=== PATIENT | male | born 1965 | race Caucasian/White ===

== ENCOUNTER 2016-09-01 14:39 | Emergency (ER) | payer OTHER ==
[~2016-09-01] VITALS: Ht 185.4 cm; Wt 102.1 kg
[2016-09-01 14:40] VITALS: BP_SYST 131
[2016-09-01] MEDS ORDERED: SODIUM BICARBONATE 8.4% VIAL 50 MEQ/50 ML VIAL INJ ONE (15:30)
[2016-09-01] MEDS ORDERED: CEFAZOLIN 1 GM IVPB PREMIX 50 ML IV ONE (15:30)
[2016-09-01] MEDS ORDERED: IBUPROFEN 800 MG TABLET PO ONE (15:30)
[2016-09-01] MEDS ORDERED: LIDOCAINE/EPI 2% 1:100000 20 ML VIAL IJ ONE (15:30)
[2016-09-01] MEDS ORDERED: LIDOCAINE 1% 10 MG/ML, 20 ML MDV IJ ONE (15:30)
[2016-09-01] MEDS ORDERED: NACL 0.9% 1,000 ML IV ONE (15:30)
[2016-09-01] MEDS ORDERED: LIDOCAINE/PRILOCAINE 5 GM CREAM (EMLA) TP ONE (15:45)
[2016-09-01 16:59] VITALS: BP_SYST 131
== END 2016-09-01 16:59 | disposition home or self-care (01) ==
LOC: SED 14:39
DX: L05.01 Pilonidal cyst with abscess (principal); Z90.49 Acquired absence of other specified parts of digestive tract
CPT/HCPCS: 10060; 96365; 99284; J0690

== ENCOUNTER 2016-09-03 17:34 | Emergency (ER) | payer OTHER ==
[~2016-09-03] VITALS: Ht 185.4 cm; Wt 102.1 kg
[2016-09-03 17:39] VITALS: BP_SYST 118
--- NOTE | 2016-09-03 17:44 | NUR ---
Pt to bed 4
--- NOTE | 2016-09-03 17:44 | NUR ---
Pt to sam. Pt report received from ELIZABETH Grande. Pt here for wound packing check. Pt s/p I&D to a cyst in Left Gluteus x 2 days ago. Purulent stains noted to dsg. Awaiting for Dr. Meyer to assess pt prior to bandage removal.
--- NOTE | 2016-09-03 18:00 | NUR ---
Dr. Meyer at bedside to assess pt. Dsg to Left buttocks removed and wound appears endurated and erythemic. Packing removed, wound cleansed with Iodine and NS, Iodoform packing replaced per Dr. Meyer. New gauze dsg applied. Pt tolerated well.
[2016-09-03 18:40] VITALS: BP_SYST 122
--- NOTE | 2016-09-03 18:40 | NUR ---
Note rozinalamar in EDM - 09/03/16 at [address] Meyer at bedside to assess pt. Dsg to Left buttocks removed and wound appears endurated and erythemic. Packing removed, wound cleansed with Iodine and NS, Iodoform packing replaced per Dr. Meyer. New gauze dsg applied. Pt tolerated well.
--- NOTE | 2016-09-03 18:40 | NUR ---
Patient given written and verbal discharge instructions and verbalizes understanding. ER MD discussed with patient the results and treatment provided. Patient in stable condition. ID arm band removed. Patient educated on pain management and to follow up with PMD. Pain Scale 4/10, tolerable. Opportunity for questions provided and answered.
== END 2016-09-03 18:40 | disposition home or self-care (01) ==
LOC: SED 17:34
DX: Z48.01 Encounter for change or removal of surgical wound dressing (principal); L05.01 Pilonidal cyst with abscess
CPT/HCPCS: 99283

== ENCOUNTER 2016-09-06 14:37 | Emergency (ER) | payer OTHER ==
[~2016-09-06] VITALS: Ht 185.4 cm; Wt 102.1 kg
[2016-09-06 14:43] VITALS: BP 134/80; PULSE 68; RESP 20; TEMP 98.1; O2SAT 100
--- NOTE | 2016-09-06 14:55 | NUR ---
Patient to ER bed 7 to gown for evaluation. Side rails up.
--- NOTE | 2016-09-06 15:03 | NUR ---
Patient to ER for wound repacking. Patient states that he has been dealing with the abscess for the past 3 years and is not getting any better. Patient had the abscess I&N a few days ago and now he is here for repacking. Sacral/upper buttocks open wound aprox 2 cm, depth 1 cm with tunneling. Mild oozing of pus, no bleeding. AAOx4, unlabored breathing, no signs of acute distress.
--- NOTE | 2016-09-06 15:04 | NUR ---
ER MIKA Martinez at bedside for evaluation
[2016-09-06] MEDS ORDERED: LIDOCAINE/EPI 2% 1:100000 20 ML VIAL INJ ONE (15:30)
--- NOTE | 2016-09-06 15:45 | NUR ---
Wound repacking procedure done by ER PROJECT EXECUTIVE Michelle mclean using sterile technique. Lidocaine 2% used. Wound packed with iodofor. Adaptic, 4x4 and rosemarie to wound. Zero amt of bleeding noted. Wound care discussed w/ patient. Pt tolerated procedure well.
[2016-09-06] MEDS ORDERED: IBUPROFEN 800 MG TABLET PO ONE (16:00)
[2016-09-06 16:31] VITALS: BP 127/73; PULSE 71; RESP 18; TEMP 98.1; O2SAT 98
--- NOTE | 2016-09-06 16:31 | NUR ---
Patient given written and verbal discharge instructions and verbalizes understanding. ER POWER LINEWORKER Michelle discussed with patient the results and treatment provided. Patient in stable condition. ID arm band removed. Rx of motrin & norco given. Patient educated on pain management and to follow up with PMD. Pain Scale 0/10. Opportunity for questions provided and answered.
== END 2016-09-06 16:31 | disposition home or self-care (01) ==
LOC: SED 14:37
DX: Z48.01 Encounter for change or removal of surgical wound dressing (principal)
CPT/HCPCS: 99283

== ENCOUNTER 2016-09-08 17:08 | Emergency (ER) | payer OTHER ==
[~2016-09-08] VITALS: Ht 185.4 cm; Wt 102.1 kg
[2016-09-08 17:16] VITALS: BP_SYST 112
[2016-09-08 18:10] VITALS: BP_SYST 117
== END 2016-09-08 18:10 | disposition home or self-care (01) ==
LOC: SED 17:08
DX: Z48.00 Encounter for change or removal of nonsurgical wound dressing (principal)
CPT/HCPCS: 99283

== ENCOUNTER 2016-09-23 14:10 | Emergency (ER) | payer OTHER ==
[~2016-09-23] VITALS: Ht 185.4 cm; Wt 102.1 kg
[2016-09-23 14:27] VITALS: BP_SYST 145
[2016-09-23 14:53] LABS: EOSINOPHILS % (AUTO) 0.2 % (0.0-4.0); MEAN CORPUSCULAR HEMOGLOBIN 29 pg (27-31); MEAN CORPUSCULAR HGB CONC 33 % (32-36); MEAN CORPUSCULAR VOLUME 87 fL (79.0-98.0)
[2016-09-23 15:04] LABS: CALCIUM 9.1 mg/dL (8.4-11.0); CREATININE 1.49 mg/dL (0.55-1.30); POTASSIUM 4.1 mmol/L (3.5-5.1)
[2016-09-23 15:05] LABS: BASOPHILS # (AUTO) 0.2 K/uL (0.0-0.2); BASOPHILS % (AUTO) 2.1 % (0.0-2.0); HEMATOCRIT 43.4 % (36-54); HEMOGLOBIN 14.2 g/dL (14.0-18.0); LYMPHOCYTES % (AUTO) 10.9 % (20.5-51.5); MONOCYTES # (AUTO) 0.4 K/uL (0.0-1.0); MONOCYTES % (AUTO) 4.7 % (1.7-9.3); NEUTROPHILS # (AUTO) 7.5 K/uL (1.8-7.7); NEUTROPHILS % (AUTO) 82.1 % (40.0-70.0); PLATELET COUNT (AUTO) 202 K/uL (130-430); RED BLOOD CELL COUNT(AUTO) 4.99 MIL/uL (4.2-6.2); RED CELL DISTRIBUTION WIDTH 12.8 % (9.0-15.0); WHITE BLOOD COUNT (AUTO) 9.1 K/uL (4.8-10.8)
[2016-09-23 15:08] LABS: ALBUMIN 4.4 g/dL (3.4-4.8); TOTAL BILIRUBIN 0.7 mg/dL (0.0-1.0); TOTAL PROTEIN, SERUM 7.7 g/dL (6.4-8.3)
[2016-09-23 15:23] LABS: BILIRUBIN,URINE NEGATIVE (NEGATIVE); BLOOD, URINE 2+ (NEGATIVE); CLARITY/URINE CLEAR (CLEAR); COLOR,URINE YELLOW (YELLOW); GLUCOSE,URINE NEGATIVE (NEGATIVE); KETONES,URINE 1+ (NEGATIVE); LEUKOCYTE ESTERASE ,URINE NEGATIVE (NEGATIVE); NITRITE, URINE NEGATIVE (NEGATIVE); PH,URINE 5.5 (5.0-8.0); PROTEIN URINE NEGATIVE (NEGATIVE); UROBILINOGEN,URINE 0.2 (0.2-1.0)
[2016-09-23 15:33] LABS: BACTERIA,URINE None Seen /HPF (None Seen); WBC,URINE 0-3 /HPF (0-3)
[2016-09-23 15:34] LABS: CALCIUM OXALATE CRYSTALS,UR 0-10 /HPF (None Seen)
[2016-09-23] MEDS ORDERED: KETOROLAC TROMETHAMINE 60 MG/2 ML VIAL IM ONE (17:15)
[2016-09-23] MEDS ORDERED: MORPHINE 4 MG/ML INJ. SYRINGE IM ONE (18:00)
[2016-09-23] MEDS ORDERED: ONDANSETRON 4 MG ODT TAB PO ONE (18:00)
[2016-09-23 18:40] VITALS: BP_SYST 125
== END 2016-09-23 18:40 | disposition home or self-care (01) ==
LOC: SED 14:12
DX: N23 Unspecified renal colic (principal)
CPT/HCPCS: 36415; 74176; 80053; 81000; 83690; 85025; 96372; 99285; J1885; J2270; Q0162

== ENCOUNTER 2018-03-02 16:42 | Emergency (ER) | payer BC, OTHER ==
[~2018-03-02] VITALS: Ht 185.4 cm; Wt 104.3 kg
[2018-03-02 16:50] VITALS: BP_SYST 115
[2018-03-02] MEDS ORDERED: PROCHLORPERAZINE EDISYLATE 10 MG/2 ML VIAL IM ONE (17:30)
[2018-03-02] MEDS ORDERED: KETOROLAC TROMETHAMINE 60 MG/2 ML VIAL IM ONE (17:30)
[2018-03-02 17:46] LABS: BASOPHILS % (AUTO) 0.7 % (0.0-2.0); EOSINOPHILS % (AUTO) 0.6 % (0.0-4.0); HEMATOCRIT 42.6 % (36-54); HEMOGLOBIN 13.8 g/dL (14.0-18.0); LYMPHOCYTES # (AUTO) 1.4 K/uL (1.0-5.5); LYMPHOCYTES % (AUTO) 25.9 % (20.5-51.5); MEAN CORPUSCULAR HEMOGLOBIN 29 pg (27-31); MEAN CORPUSCULAR HGB CONC 32 % (32-36); MEAN CORPUSCULAR VOLUME 90 fL (79.0-98.0); MONOCYTES # (AUTO) 0.3 K/uL (0.0-1.0); MONOCYTES % (AUTO) 5.5 % (1.7-9.3); NEUTROPHILS # (AUTO) 3.6 K/uL (1.8-7.7); NEUTROPHILS % (AUTO) 67.3 % (40.0-70.0); PLATELET COUNT (AUTO) 199 K/uL (130-430); RED BLOOD CELL COUNT(AUTO) 4.74 MIL/uL (4.2-6.2); RED CELL DISTRIBUTION WIDTH 12.8 % (9.0-15.0); WHITE BLOOD COUNT (AUTO) 5.3 K/uL (4.8-10.8)
[2018-03-02 17:55] LABS: CALCIUM 9.1 mg/dL (8.4-11.0); CREATININE 0.96 mg/dL (0.55-1.30); POTASSIUM 4.5 mmol/L (3.5-5.1)
[2018-03-02 18:00] LABS: ALBUMIN 3.9 g/dL (3.4-4.8); TOTAL BILIRUBIN 0.6 mg/dL (0.0-1.0)
[2018-03-02 19:09] VITALS: BP_SYST 115
== END 2018-03-02 19:13 | disposition home or self-care (01) ==
LOC: SED 16:42
DX: M43.6 Torticollis (principal); F17.200 Nicotine dependence, unspecified, uncomplicated; R03.0 Elevated blood-pressure reading, without diagnosis of hypertension
CPT/HCPCS: 36415; 71045; 80053; 82550; 84484; 85025; 93005; 96372; 99285; J0780; J1885

== ENCOUNTER 2018-11-14 09:21 | Emergency (ER) | payer BC ==
[~2018-11-14] VITALS: Ht 185.4 cm; Wt 102.1 kg
[2018-11-14 09:40] VITALS: BP_SYST 132
[2018-11-14] MEDS ORDERED: NACL 0.9% 1,000 ML IV ONE (09:54)
[2018-11-14] MEDS ORDERED: ONDANSETRON HCL 4 MG/2 ML VIAL IVP ONE (10:00)
[2018-11-14] MEDS ORDERED: KETOROLAC TROMETHAMINE 30 MG VIAL IVP ONE (10:00)
[2018-11-14 10:22] LABS: BASOPHILS % (AUTO) 0.5 % (0.0-2.0); EOSINOPHILS # (AUTO) 0.1 K/uL (0.0-0.4); EOSINOPHILS % (AUTO) 2.6 % (0.0-4.0); HEMOGLOBIN 14.5 g/dL (14.0-18.0); LYMPHOCYTES # (AUTO) 1.9 K/uL (1.0-5.5); LYMPHOCYTES % (AUTO) 43.3 % (20.5-51.5); MEAN CORPUSCULAR HEMOGLOBIN 30 pg (27-31); MEAN CORPUSCULAR HGB CONC 34 % (32-36); MEAN CORPUSCULAR VOLUME 88 fL (79.0-98.0); MONOCYTES # (AUTO) 0.4 K/uL (0.0-1.0); MONOCYTES % (AUTO) 8.8 % (1.7-9.3); NEUTROPHILS # (AUTO) 1.9 K/uL (1.8-7.7); NEUTROPHILS % (AUTO) 44.8 % (40.0-70.0); PLATELET COUNT (AUTO) 191 K/uL (130-430); RED BLOOD CELL COUNT(AUTO) 4.88 MIL/uL (4.2-6.2); RED CELL DISTRIBUTION WIDTH 13.7 % (9.0-15.0); WHITE BLOOD COUNT (AUTO) 4.3 K/uL (4.8-10.8)
[2018-11-14 10:35] LABS: CALCIUM 8.9 mg/dL (8.4-11.0); CREATININE 0.85 mg/dL (0.55-1.30); POTASSIUM 4.1 mmol/L (3.5-5.1)
[2018-11-14 10:40] LABS: ALBUMIN 3.8 g/dL (3.4-4.8); TOTAL BILIRUBIN 0.6 mg/dL (0.0-1.0)
[2018-11-14 11:12] LABS: BILIRUBIN,URINE NEGATIVE (NEGATIVE); CLARITY/URINE CLEAR (CLEAR); COLOR,URINE YELLOW (YELLOW); GLUCOSE,URINE NEGATIVE (NEGATIVE); KETONES,URINE NEGATIVE (NEGATIVE); LEUKOCYTE ESTERASE ,URINE NEGATIVE (NEGATIVE); NITRITE, URINE NEGATIVE (NEGATIVE); PROTEIN URINE NEGATIVE (NEGATIVE); UROBILINOGEN,URINE 0.2 (0.2-1.0)
[2018-11-14 11:28] LABS: BLOOD, URINE TRACE (NEGATIVE)
[2018-11-14 11:33] VITALS: BP_SYST 129
[2018-11-14 12:14] LABS: BACTERIA,URINE None Seen /HPF (None Seen); WBC,URINE NONE SEEN /HPF (0-3)
== END 2018-11-14 11:32 | disposition home or self-care (01) ==
LOC: SED 09:21
DX: K59.00 Constipation, unspecified (principal)
CPT/HCPCS: 36415; 74176; 80053; 81000; 85025; 96374; 96375; 99284; J1885; J2405; J7030

== ENCOUNTER 2019-02-16 04:02 | Emergency (ER) | payer BC ==
[~2019-02-16] VITALS: Ht 185.4 cm; Wt 102.1 kg
[2019-02-16 04:05] VITALS: BP_SYST 126
[2019-02-16] MEDS ORDERED: NACL 0.9% 1,000 ML IV ONE (04:23)
[2019-02-16] MEDS ORDERED: KETOROLAC TROMETHAMINE 30 MG VIAL IVP ONE (04:30)
[2019-02-16 04:44] LABS: BASOPHILS % (AUTO) 0.6 % (0.0-2.0); EOSINOPHILS # (AUTO) 0.2 K/uL (0.0-0.4); EOSINOPHILS % (AUTO) 3.2 % (0.0-4.0); HEMATOCRIT 43.3 % (36-54); HEMOGLOBIN 14.6 g/dL (14.0-18.0); LYMPHOCYTES # (AUTO) 2.2 K/uL (1.0-5.5); LYMPHOCYTES % (AUTO) 42.9 % (20.5-51.5); MEAN CORPUSCULAR HEMOGLOBIN 30 pg (27-31); MEAN CORPUSCULAR HGB CONC 34 % (32-36); MEAN CORPUSCULAR VOLUME 91 fL (79.0-98.0); MONOCYTES # (AUTO) 0.5 K/uL (0.0-1.0); MONOCYTES % (AUTO) 9.3 % (1.7-9.3); NEUTROPHILS # (AUTO) 2.2 K/uL (1.8-7.7); PLATELET COUNT (AUTO) 204 K/uL (130-430); RED BLOOD CELL COUNT(AUTO) 4.79 MIL/uL (4.2-6.2); RED CELL DISTRIBUTION WIDTH 13.6 % (9.0-15.0); WHITE BLOOD COUNT (AUTO) 5.1 K/uL (4.8-10.8)
[2019-02-16 04:59] LABS: CALCIUM 8.9 mg/dL (8.4-11.0); CREATININE 1.11 mg/dL (0.55-1.30); POTASSIUM 4.1 mmol/L (3.5-5.1)
[2019-02-16 05:05] LABS: ALBUMIN 3.9 g/dL (3.4-4.8); TOTAL BILIRUBIN 0.4 mg/dL (0.0-1.0)
[2019-02-16 06:29] LABS: BILIRUBIN,URINE NEGATIVE (NEGATIVE); BLOOD, URINE NEGATIVE (NEGATIVE); CLARITY/URINE CLEAR (CLEAR); COLOR,URINE YELLOW (YELLOW); GLUCOSE,URINE NEGATIVE (NEGATIVE); KETONES,URINE NEGATIVE (NEGATIVE); LEUKOCYTE ESTERASE ,URINE NEGATIVE (NEGATIVE); NITRITE, URINE NEGATIVE (NEGATIVE); PH,URINE 5.5 (5.0-8.0); PROTEIN URINE NEGATIVE (NEGATIVE); UROBILINOGEN,URINE 0.2 (0.2-1.0)
[2019-02-16 07:15] VITALS: BP_SYST 128
== END 2019-02-16 07:15 | disposition home or self-care (01) ==
LOC: SED 04:02
DX: R10.9 Unspecified abdominal pain (principal)
CPT/HCPCS: 36415; 74176; 80053; 81003; 85025; 96374; 99284; J1885

== ENCOUNTER 2023-10-29 09:57 | Emergency (ER) | payer BC, OTHER ==
[~2023-10-29] VITALS: Ht 185.4 cm; Wt 108.9 kg
[2023-10-29 10:00] VITALS: BP_SYST 161; PULSE 73; RESP 18; TEMP 97.1; O2SAT 97
[2023-10-29 10:30] LABS: BASOPHILS % (AUTO) 0.6 % (0.0-2.0); EOSINOPHILS # (AUTO) 0.1 K/uL (0.0-0.4); EOSINOPHILS % (AUTO) 2.1 % (0.0-4.0); HEMOGLOBIN 15.3 g/dL (14.0-18.0); LYMPHOCYTES # (AUTO) 2.6 K/uL (1.0-5.5); LYMPHOCYTES % (AUTO) 44.4 % (20.5-51.5); MEAN CORPUSCULAR HEMOGLOBIN 30 pg (27-31); MEAN CORPUSCULAR HGB CONC 35 % (32-36); MEAN CORPUSCULAR VOLUME 86 fL (79.0-98.0); MONOCYTES # (AUTO) 0.4 K/uL (0.0-1.0); MONOCYTES % (AUTO) 6.7 % (1.7-9.3); NEUTROPHILS # (AUTO) 2.7 K/uL (1.8-7.7); NEUTROPHILS % (AUTO) 46.2 % (40.0-70.0); PLATELET COUNT (AUTO) 250 K/uL (130-430); RED BLOOD CELL COUNT(AUTO) 5.12 MIL/uL (4.2-6.2); RED CELL DISTRIBUTION WIDTH 13.8 % (9.0-15.0); WHITE BLOOD COUNT (AUTO) 5.9 K/uL (4.8-10.8)
[2023-10-29 10:53] LABS: ALBUMIN 4.1 g/dL (3.4-4.8); BILIRUBIN,DIRECT 0.1 mg/dL (0.0-0.3); CALCIUM 8.7 mg/dL (8.4-11.0); CREATININE 1.01 mg/dL (0.55-1.30); POTASSIUM 4.2 mmol/L (3.5-5.1); TOTAL BILIRUBIN 0.5 mg/dL (0.0-1.0); TOTAL PROTEIN, SERUM 7.9 g/dL (6.4-8.3)
[2023-10-29 11:00] LABS: INR 1.1 (0.80-1.20)
[2023-10-29] MEDS ORDERED: cloNIDine HCL 0.1 MG TABLET ONE (12:15)
[2023-10-29] MEDS: cloNIDine HCL 0.1 MG TABLET PO ONE (12:17)
[2023-10-29] MEDS ORDERED: CLON0.2T PO (13:12)
[2023-10-29 13:15] VITALS: BP_SYST 139; PULSE 59; RESP 18; TEMP 97.1; O2SAT 97
== END 2023-10-29 13:11 | disposition home or self-care (01) ==
LOC: SED 09:57
DX: R04.0 Epistaxis (principal)
CPT/HCPCS: 36415; 80048; 80076; 85025; 85610; 85730; 99283